=== PATIENT | male | born 1985 | race Caucasian/White ===

== ENCOUNTER 2017-05-03 20:42 | Emergency (ER) | payer OTHER ==
[~2017-05-03] VITALS: Ht 182.9 cm; Wt 105.6 kg
[~2017-05-03 20:42] MED LIST: AMOX500T PO
[2017-05-03 21:04] VITALS: TEMP 37.1; Ht 182.9 cm; Wt 105.6 kg
[2017-05-03] MEDS ORDERED: ACET-1256 PO (21:21)
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
[2017-05-03 23:10] VITALS: BP 142/88; PULSE 93; O2SAT 96
== END 2017-05-03 23:05 | disposition home or self-care (01) ==
LOC: C.EDB 20:43 → C.EDD 23:05
DX: R07.81 Pleurodynia (principal)